=== PATIENT | male | born 1940 | race Caucasian/White ===

== ENCOUNTER 2016-08-23 12:59 | Emergency (ER) | payer MEDICARE ==
[2016-08-23 13:07] VITALS: BP 150/69
--- OUTSIDE RECORDS SUMMARY | 2016-08-23 13:07 | XMS REPORT | Continuity of Care Document ---
:1940 Demographics Phone Unavailable Preferred Language Unknown Marital Status Unknown Zoroastrianism Affiliation Unknown Race Unknown Ethnic Group Unknown Author Organization [facility] ([facility]) [place] [address] Phone [phone] Care Team Providers Name Role Phone Unavailable Primary Care Provider Unavailable Source Comments This disclosure is being made pursuant to the Care Everywhere program, applicable federal and state laws, and may not contain all informaitonavailable regarding this patient.[facility] ([facility]) Active Allergies and Adverse Reactions Not on File Current Medications Not on file Active Problems Not on file Social History Tobacco Use Types Packs/Day Years Used Date Never Assessed Plan of Care Health Maintenance Due Date Last Done Comments Hepatitis B Vaccine (1 of 3 - Primary Series) 1940 Tdap Vaccine 1953 Lipid Disorder Screening 02/08/1960 Td Vaccine 02/08/1960 Colonoscopy 1992 Prostate Cancer Screening 02/08/1992 Zoster Vaccine 2002 Pneumococcal Vaccine (1 of 2 - PCV13) 2007 Influenza Vaccine: Seasonal (#1) 02/08/2016 Results from Last 3 Months Not on file
== END 2016-08-23 13:08 | disposition home or self-care (01) ==
LOC: ER 12:59
DX: Z13.6 Encounter for screening for cardiovascular disorders (principal)

== ENCOUNTER 2017-01-30 12:44 | Day surgery (SDC) | payer MEDICARE, OTHER ==
[2017-01-30 13:33] VITALS: BP 147/64
== END 2017-01-30 12:45 | disposition home or self-care (01) ==
LOC: AMB 12:44
PROVIDERS: ATTEND Ophthalmology
PROC: 085J3ZZ Destruction of Right Lens, Percutaneous Approach (ICD-10-PCS; principal; 2017-01-30 13:40)
DX: H26.491 Other secondary cataract, right eye (principal); I10 Essential (primary) hypertension; E78.00 Pure hypercholesterolemia, unspecified; Z68.29 Body mass index [BMI] 29.0-29.9, adult